=== PATIENT | male | born 1965 | race Caucasian/White ===

== ENCOUNTER 2023-10-29 17:44 | Emergency (ER) | payer OTHER ==
[~2023-10-29] VITALS: Ht 175.3 cm; Wt 102.1 kg
[2023-10-29 18:10] VITALS: BP_SYST 116; PULSE 79; RESP 16; TEMP 96.7; O2SAT 98
[2023-10-29 18:54] VITALS: BP_SYST 118; PULSE 75; RESP 18; TEMP 96.7; O2SAT 98
== END 2023-10-29 18:54 | disposition home or self-care (01) ==
LOC: SED 17:44
DX: R53.1 Weakness (principal); E11.9 Type 2 diabetes mellitus without complications; I10 Essential (primary) hypertension
CPT/HCPCS: 99281